=== PATIENT | female | born 2000 | race Caucasian/White ===

== ENCOUNTER 2022-07-27 18:55 | Inpatient (IN) | payer MEDICAID ==
[~2022-07-27] VITALS: Ht 149.9 cm; Wt 60.3 kg
[2022-07-27] MEDS ORDERED: FAMO20TA8 PO (19:43)
[2022-07-27 20:07] LABS: COVID AG,FIA SOURCE NASOPHARYNGEAL
[2022-07-27 20:08] LABS: BASOPHILS % (AUTO) 0.5 % (0.0-2.0); HEMATOCRIT 40.7 % (36-46); HEMOGLOBIN 13.3 g/dL (12.0-16.0); LYMPHOCYTES % (AUTO) 30.1 % (22.0-44.0); MEAN CORPUSCULAR HEMOGLOBIN 29.9 pg (26.0-34.0); MEAN CORPUSCULAR HGB CONC 32.6 G/dL (31.0-37.0); MEAN CORPUSCULAR VOLUME 92 fL (80-100); MONOCYTES # (AUTO) 0.6 K/uL (0.1-1.0); MONOCYTES % (AUTO) 5.9 % (2.0-9.0); NEUTROPHILS # (AUTO) 6.2 K/uL (1.8-7.7); NEUTROPHILS % (AUTO) 62.5 % (40.0-70.0); PLATELET COUNT (AUTO) 440 K/uL (150-450); RED BLOOD CELL COUNT(AUTO) 4.44 MIL/uL (4.00-5.20); RED CELL DISTRIBUTION WIDTH 15.1 % (11.5-14.5)
[2022-07-27 20:20] LABS: ANION GAP 10 mmol/L (8-16); CALCIUM, TOTAL 8.9 mg/dL (8.8-10.5); CARBON DIOXIDE 25 mmol/L (22-29); CHLORIDE 103 mmol/L (98-107); CREATININE 0.59 mg/dL (0.60-1.30); GLOMERULAR FILTR. RATE CALC > 60 mL/min (>60); GLUCOSE,RANDOM 88 mg/dL (70-110); SODIUM SERUM 138 mmol/L (136-145)
[2022-07-27 20:25] LABS: ALANINE AMINOTRANSFERASE 11 U/L (12-78); ALBUMIN 3.7 g/dL (3.4-5.0); ALKALINE PHOSPHATASE 88 U/L (46-116); ASPARTATE AMINOTRANSFERASE 15 U/L (15-37); BILIRUBIN,TOTAL 0.3 mg/dL (0.1-1.0); TOTAL PROTEIN, SERUM 7.4 g/dL (6.4-8.2)
[2022-07-27] MEDS ORDERED: HALOPERIDOL 5 MG TABLET PO PRN (21:15)
[2022-07-27 22:34] LABS: APPEARANCE,URINE CLEAR (CLEAR); BILIRUBIN,URINE NEGATIVE (NEGATIVE); GLUCOSE, URINE (UA) NEGATIVE (NEGATIVE); LEUKOCYTE ESTERASE ,URINE NEGATIVE (NEGATIVE); NITRATE,URINE NEGATIVE (NEGATIVE); OCCULT BLOOD,URINE LARGE (NEGATIVE); PH,URINE 6.5 (5.0-8.0); PROTEIN,URINE 30-70 mg/dL (NEGATIVE); SPECIFIC GRAVITIY, URINE 1.031 (1.003-1.030); UROBILINOGEN,URINE <=1.0 mg/dL (<=1.0)
[2022-07-27 22:42] LABS: AMPHET/METH SCREEN,URINE NEGATIVE (NEGATIVE); BARBITURATE SCREEN, URINE NEGATIVE (NEGATIVE); BENZODIAZEPINES SCREEN,URINE NEGATIVE (NEGATIVE); CANNABINOID SCREEN,URINE POSITIVE (NEGATIVE); COCAINE SCREEN,URINE NEGATIVE (NEGATIVE); METHADONE SCREEN, URINE NEGATIVE (NEGATIVE); OPIATE SCREEN,URINE NEGATIVE (NEGATIVE); PHENCYCLIDINE SCREEN,URINE NEGATIVE (NEGATIVE)
[2022-07-27 22:44] LABS: WBC,URINE 0-2 /HPF (0-5)
[2022-07-27 22:45] LABS: BACTERIA,URINE Few /HPF (None Seen); SQUAMOUS EPITHELIAL CELL,UR Few /LPF (None Seen)
[2022-07-27 23:47] VITALS: BP 116/74
[2022-07-28 08:03] VITALS: BP 121/77
[2022-07-28] MEDS: LORazepam 2 MG TABLET PO PRN ×2 (09:38→19:55)
[2022-07-28] MEDS: SERTRALINE HCL 50 MG TABLET PO SCH (12:49)
[2022-07-28 20:00] VITALS: BP 112/74
[2022-07-28] MEDS: ZOLPIDEM TARTRATE 10 MG TABLET PO PRN (21:45)
[2022-07-29 08:06] VITALS: BP 119/88
[2022-07-29] MEDS: SERTRALINE HCL 50 MG TABLET PO SCH (08:28)
[2022-07-29] MEDS: LORazepam 2 MG TABLET PO PRN (12:45)
[2022-07-29 20:01] VITALS: BP 113/76
[2022-07-30 08:30] VITALS: BP 114/78
[2022-07-30] MEDS: SERTRALINE HCL 50 MG TABLET PO SCH (08:38)
[2022-07-30 15:58] VITALS: BP 110/81
[2022-07-30] MEDS: LORazepam 2 MG TABLET PO PRN (16:02)
[2022-07-30] MEDS: ZOLPIDEM TARTRATE 10 MG TABLET PO PRN (20:30)
[2022-07-30 22:14] VITALS: BP 119/74
[2022-07-31 08:01] VITALS: BP 114/72
[2022-07-31] MEDS: SERTRALINE HCL 50 MG TABLET PO SCH (08:18)
[2022-07-31] MEDS: LORazepam 2 MG TABLET PO PRN (16:42)
[2022-07-31 20:23] VITALS: BP 122/72
[2022-07-31] MEDS: ZOLPIDEM TARTRATE 10 MG TABLET PO PRN (20:41)
[2022-08-01 08:04] VITALS: BP 113/68
[2022-08-01] MEDS: SERTRALINE HCL 50 MG TABLET PO SCH (09:16)
[2022-08-01] MEDS ORDERED: SERT-439 PO (13:45)
== END 2022-08-01 16:30 | disposition home or self-care (01) | DRG 751 ==
LOC: EMS 18:55 → B2S 21:19
PROVIDERS: ADMIT Psychiatry & Neurology Psychiatry; ATTEND Psychiatry & Neurology Psychiatry
DX: F33.2 Major depressive disorder, recurrent severe without psychotic features (principal); F41.9 Anxiety disorder, unspecified; Z20.822 Contact with and (suspected) exposure to COVID-19; G47.00 Insomnia, unspecified; X78.8XXA Intentional self-harm by other sharp object, initial encounter; S51.811A Laceration without foreign body of right forearm, initial encounter; K21.9 Gastro-esophageal reflux disease without esophagitis; Z79.899 Other long term (current) drug therapy; Z88.1 Allergy status to other antibiotic agents; Z91.51 Personal history of suicidal behavior; Y93.89 Activity, other specified; Y92.89 Other specified places as the place of occurrence of the external cause; Y99.8 Other external cause status
CPT/HCPCS: 80053; 80307; 81001; 85025; 99285; G0480